=== PATIENT | female | born 1960 | race Caucasian/White ===

== ENCOUNTER 2017-10-19 17:49 | Emergency (ER) | payer OTHER ==
[~2017-10-19] VITALS: Ht 170.2 cm; Wt 68.0 kg
[~2017-10-19 17:49] MED LIST: ADVIL,NUPRIN,M200 MG PO; ATIVAN; ATIVAN2 MG PO; DASETTA1 EACH PO; FERROUS SULFAT325 MG PO; MEGACE20 MG PO; SERTRALINE HCL100 MG PO; SERTRALINE HCL50 MG PO; WELLBUTRIN
[2017-10-19 21:25] VITALS: BP 131/85
== END 2017-10-19 21:28 | disposition home or self-care (01) ==
LOC: EME 17:49
DX: F32.9 Major depressive disorder, single episode, unspecified (principal); F41.9 Anxiety disorder, unspecified; Z88.8 Allergy status to other drugs, medicaments and biological substances
CPT/HCPCS: 90839; 99281; 99284